=== PATIENT | female | born 1970 | race Caucasian/White ===

== ENCOUNTER 2016-11-01 18:36 | Emergency (ER) | payer OTHER ==
[2016-11-01] MEDS ORDERED: Lidocaine 1% 5ml(IM or SUTURE)(PAIN CLINIC) ONE (18:46)
[2016-11-01] MEDS ORDERED: TRIPLE ANTIBIOTIC OINTMENT PAC 1 PACKET TOP ONE (19:20)
[2016-11-01] MEDS ORDERED: DIPH,PERTUSS(ACELL),TET VAC/PF 0.5 ML DISP.SYRIN IM ONE (19:26)
[2016-11-01] MEDS ORDERED: Lidocaine 1% 5ml(IM or SUTURE)(PAIN CLINIC) IJ ONE (19:27)
[2016-11-01] MEDS ORDERED: CEPHALEXIN 250 MG CAPSULE PO ONE (19:27)
--- NOTE | 2016-11-01 19:36 | ED Physician Documentation ---
General Adult - HISTORIAN Historian: patient, spouse - HPI Stated Complaint: laceration Chief Complaint: Laceration/Recheck/Suture Additional Information: U SHAPED DISTAL LT THUMB APPROX 2.5 CM NEAR COMPLETE AMPUTATION FLAP DARK IN COLOR. LAC W/ KITCHEN KNIFE WHILE CUTTING PORK STEAK. Onset: hours (1800) Timing: still present - ROS CONST: no problems CVS/RESP: none GI/: none MS/SKIN/LYMPH: none NEURO/PSYCH: denies: headache, fainting, dizziness, tingling - PAST HX Past History: asthma Surgeries/Procedures: BTL (HERNIA), (X3) Immunizations: denies: UTD Allergies/Adverse Reactions: Allergies Allergy/AdvReac Type Severity Reaction Status Date / Time No Known Drug Allergies Allergy Verified 11/01/16 18:51 - SOCIAL HX Smoking History: non-smoker Alcohol Use: none Drug Use: none - FAMILY HX Family History: No - VITAL SIGNS Vital Signs: Vital Signs Temp Pulse Resp BP Pulse Ox 98.1 F 92 H 18 140/91 96 11/01/16 18:44 11/01/16 18:44 11/01/16 18:44 11/01/16 18:44 11/01/16 18:44 - REVIEWED ASSESSMENTS Nursing Assessment Reviewed: Yes Vitals Reviewed: Yes Procedures Wound Location: upper extremity Wound's Depth, Shape: superficial, flap Wound Explored: no foreign body removed (EXPLORED) Betadine Prep?: Yes Anesthesia: 1% Lidocaine Wound Repaired With: sutures Suture Size/Type: 4:0 Sterile Dressing Applied?: Yes Splint Applied?: No Sling Applied?: No ED Results Lab/Radiology - Orders Orders: ED Orders Category Date Time Status Cephalexin [Keflex] Med 11/01/16 19:27 Once 1,000 mg PO NOW ONE Diph,Pertuss(Acell),Tet Vac/Pf [Adacel] Med 11/01/16 19:26 Once 0.5 ml IM .ONCE ONE Lidocaine 1% 5ml(IM or SUTURE) [Xylocaine] Med 11/01/16 18:46 Discontinued 50 mg .ROUTE .STK-MED ONE Lidocaine 1% 5ml(IM or SUTURE) [Xylocaine] Med 11/01/16 19:27 Once 50 mg IJ NOW ONE General Adult Physical Exam - PHYSICAL EXAM GENERAL APPEARANCE: mild distress EENT: eye inspection normal NECK: normal inspection RESPIRATORY: no resp distress, chest non-tender, breath sounds normal CVS: reg rate & rhythm, heart sounds normal ABDOMEN: soft, non-tender SKIN: warm/dry, normal color, cyanosis (DISTAL THUMB TIP ONLY). No: diaphoresis , jaundice EXTREMITIES: normal range of motion NEURO: oriented X3, motor nml, sensation nml, mood/affect nml Discharge Clincal Impression: U SHAPED LAC DISTAL LT THUMB 2.5CM Referrals: Myranda Kang MD [Primary Care Provider] - 2 Days Comments: KEEP CLEAN DRY OBS FOR PUS SWELLING INC PAIN RED STREAKS SUT OUT [address] KANG Condition: Good Disposition: 01 HOME, SELF-CARE Decision to Admit: NO Decision Time: 19:35
[2016-11-01 19:53] VITALS: BP 138/90
== END 2016-11-01 19:40 | disposition home or self-care (01) ==
LOC: ED 18:36
DX: S61.012A Laceration without foreign body of left thumb without damage to nail, initial encounter (principal); W26.0XXA Contact with knife, initial encounter; Y93.9 Activity, unspecified; Y92.000 Kitchen of unspecified non-institutional (private) residence as the place of occurrence of the external cause; Y99.9 Unspecified external cause status
CPT/HCPCS: 12001; 90471; 90715; 99283; 99284

== ENCOUNTER 2017-09-25 09:12 | Emergency (ER) | payer OTHER ==
[~2017-09-25 09:12] MED LIST: Lidocaine 1% 5ml(IM or SUTURE)(PAIN CLINIC) IJ ONE
[2017-09-25] MEDS ORDERED: Lidocaine 1% 5ml(IM or SUTURE)(PAIN CLINIC) ONE (09:32)
--- NOTE | 2017-09-25 09:43 | ED Physician Documentation ---
General Adult - HPI Stated Complaint: FB left leg Chief Complaint: General Adult Onset: hours Timing: still present Severity: mild Further Comments: yes (Pt is a 47 yo female with a fish hook in her L leg/ ankle. Tetanus is utd.) - ROS CONST: no problems EYES/ENT: none CVS/RESP: none GI/: none MS/SKIN/LYMPH: other (fishhook in L leg) - PAST HX Past History: asthma Surgeries/Procedures: Allergies/Adverse Reactions: Allergies Allergy/AdvReac Type Severity Reaction Status Date / Time No Known Drug Allergies Allergy Verified 09/25/17 09:19 - SOCIAL HX Smoking History: non-smoker - FAMILY HX Family History: No - VITAL SIGNS Vital Signs: Vital Signs Temp Pulse Resp BP Pulse Ox 98.2 F 99 H 18 156/105 97 09/25/17 09:20 09/25/17 09:20 09/25/17 09:20 09/25/17 09:20 09/25/17 09:20 - REVIEWED ASSESSMENTS Nursing Assessment Reviewed: Yes Vitals Reviewed: Yes Progress - Progress Progress: fish hook removed from leg area cleansed with betadine, 1% lidocaine, 2 cc's, used at site Triple antibiotic applied. ED Results Lab/Radiology - Orders Orders: ED Orders Category Date Time Status Lidocaine 1% 5ml(IM or SUTURE) [Xylocaine] Med 09/25/17 09:32 Discontinued 50 mg .ROUTE .STK-MED ONE General Adult Physical Exam - PHYSICAL EXAM GENERAL APPEARANCE: no distress NECK: normal inspection, supple RESPIRATORY: no resp distress SKIN: other (fish hook in medial lower leg) EXTREMITIES: non-tender, normal range of motion, other (fish hook in medial lower leg) NEURO: oriented X3, motor nml, sensation nml Discharge Clincal Impression: foreign body L leg Referrals: Myranda Kang MD [Primary Care Provider] - Condition: Good Disposition: 01 HOME, SELF-CARE Decision to Admit: NO Decision Time: 09:55
[2017-09-25 09:59] VITALS: BP 149/87
== END 2017-09-25 09:43 | disposition home or self-care (01) ==
LOC: ED 09:12
DX: S80.852A Superficial foreign body, left lower leg, initial encounter (principal); Y93.59 Activity, other involving other sports and athletics played individually
CPT/HCPCS: 96372; 99283

== ENCOUNTER 2017-12-25 15:10 | Emergency (ER) | payer OTHER ==
[2017-12-25 15:21] VITALS: BP 144/93
--- NOTE | 2017-12-25 16:17 | ED Physician Documentation ---
Eye Problem - HISTORIAN Historian: patient - HPI Stated Complaint: L eye irritation Chief Complaint: Eye Problems Additional Information: Eye draining since yesterday. Threw away her contact lenses. Eye matted shut this am. Yellow drainage. No problems with vision, but eye mustafa. Son diagnosed with viral conjunctivitis last week and got better. Location: left eye Apparent Injury: no - ROS CONST: no problems - PAST HX Past History: none, other (c section) Immunizations: UTD Allergies/Adverse Reactions: Allergies Allergy/AdvReac Type Severity Reaction Status Date / Time No Known Drug Allergies Allergy Verified 12/25/17 15:22 Home Medications: Ambulatory Orders Medication Instructions Recorded Ciprofloxacin HCl [Ciloxan] 2 drop OP NOW #1 bottle 12/25/17 - SOCIAL HX Smoking History: non-smoker Alcohol Use: none Drug Use: none - FAMILY HX Family History: no significant history - VITAL SIGNS Vital Signs: Vital Signs Temp Pulse Resp BP Pulse Ox 98.2 F 85 18 144/93 98 12/25/17 15:19 12/25/17 15:19 12/25/17 15:19 12/25/17 15:19 12/25/17 15:19 - REVIEWED ASSESSMENTS Nursing Assessment Reviewed: Yes Vitals Reviewed: Yes Eye Problem Physical Exam - Physical Exam General Appearance: alert, mild distress Examined with Slit Lamp: No Eyelids: erythema (L) (mild, diffuse) Conjunctiva and Sclera: injected (L) (mild), exudate (L) (serous) Corneas: nml inspection EOM: intact (conjugate movements) Pupils: equal Anterior Chambers: nml inspection Head/ENT: nml inspection Skin: nml color, warm Neck/Back: nml inspection Respiratory: no resp distress Neuro/Psych: oriented x3, neuro intact, mood/affect nml Discharge Clincal Impression: Conjunctivitis Prescriptions: Ciprofloxacin HCl [Ciloxan] 2 drop OP NOW #1 bottle Referrals: Myranda Kang MD [Primary Care Provider] - 2 Days Additional Instructions: Your prescription is at [facility]. Use thorough hand washing. No contact lenses until okayed by your eye doctor. Condition: Good Disposition: 01 HOME, SELF-CARE Decision to Admit: NO Decision Time: 16:21
== END 2017-12-25 16:31 | disposition home or self-care (01) ==
LOC: ED 15:10
DX: H10.9 Unspecified conjunctivitis (principal)
CPT/HCPCS: 99282

== ENCOUNTER 2019-04-24 07:50 | Emergency (ER) | payer OTHER ==
--- NOTE | 2019-04-24 08:03 | ED Physician Documentation ---
General Adult - HISTORIAN Historian: patient - HPI Stated Complaint: nausea and vomiting since Sat Chief Complaint: Nausea,Vomiting,Diarrhea (x 3 days) Onset: days ago (3) Timing: still present Severity: moderate Further Comments: yes (She reports her daughter came this last week for holiday and she was having GI issues. Then sat she started to have vomiting with mild diarrhea and now she is having diarrhea (4 today) vomiting (currently) and lower abdominal pain that started about 2 am. She denies a fever. She is an alcoholic and she drinks vodka but has not had any alcohol since illness started. She denies any seizure activity with withdrawl. No cramping. She does note reflux and she does take OTC Meds daily for that although she has not had this since Wednesday) - ROS CONST: no problems GI/: abdominal pain, vomiting, nausea, diarrhea MS/SKIN/LYMPH: none NEURO/PSYCH: denies: headache - PAST HX Past History: other (reflux ) Immunizations: UTD Allergies/Adverse Reactions: Allergies Allergy/AdvReac Type Severity Reaction Status Date / Time No Known Drug Allergies Allergy Verified 04/24/19 08:13 Home Medications: Ambulatory Orders Medication Instructions Recorded Naltrexone [Naltrexone Base 50 mg PO DAILY 04/24/19 Monohydrate] Omeprazole (Nf) [Prilosec (Nf)] 20 mg PO DAILY 04/24/19 - SOCIAL HX Smoking History: non-smoker Alcohol Use: heavy Drug Use: none - FAMILY HX Family History: No - VITAL SIGNS Vital Signs: Vital Signs Temp Pulse Resp BP Pulse Ox 144/93 12/25/17 16:31 - REVIEWED ASSESSMENTS Nursing Assessment Reviewed: Yes Vitals Reviewed: Yes Progress - Progress Progress: 0905: pain has resolved. She is now sleeping per herself DG 0940: she has only mild nausea. She feels better. She is aware of diagnostic findings. She is to follow up with PCP and return for any increased symptoms DG General Adult Physical Exam - PHYSICAL EXAM GENERAL APPEARANCE: no distress EENT: eye inspection normal, pharynx normal, no signs of dehydration NECK: normal inspection RESPIRATORY: no resp distress, chest non-tender, breath sounds normal CVS: reg rate & rhythm, heart sounds normal, equal pulses ABDOMEN: soft, no distension, tenderness (mid lower abdomen "some" with palpation ). No: guarding BACK: normal inspection, no CVA tenderness SKIN: warm/dry, normal color EXTREMITIES: non-tender, normal range of motion, no evidence of injury, no edema NEURO: oriented X3 Discharge Clincal Impression: Nausea & vomiting Qualifiers: Vomiting type: unspecified Vomiting Intractability: unspecified Qualified Code(s): R11.2 - Nausea with vomiting, unspecified Diabetes Qualifiers: Diabetes mellitus type: type 2 Diabetes mellitus watermelon inspector insulin use: without alf use Diabetes mellitus complication status: without complication Qualified Code(s): E11.9 - Type 2 diabetes mellitus without complications Referrals: Myranda Kang MD [Primary Care Provider] - 2 Days Comments: 1. Metformin 500 mg take 1 by mouth twice daily 2. Zofran 4 mg take 1 by mouth every 8 hours as needed for nausea 3. Omeprazole 20 mg take 1 by mouth daily 4. Increase fluids 5. Watch carb/sugar intake 6. Increased vomiting or diarrhea return to ER 7. Call PCP for SIN appt - new dx of diabetes Condition: Stable Disposition: 01 HOME, SELF-CARE Decision to Admit: NO Date of Decison to Admit: 04/24/19 Decision Time: 09:44
[2019-04-24] MEDS ORDERED: ONDANSETRON HCL/PF 4 MG/ 2ML VIAL IVP ONE (08:12)
[2019-04-24] MEDS ORDERED: 0.9 % SODIUM CHLORIDE 1,000 ML IV ONE (08:12)
[2019-04-24] MEDS ORDERED: FAMOTIDINE 20 MG/2 ML VIAL IV ONE (08:14)
[2019-04-24 08:16] LABS: BASOPHILS % 0.4 % (0.0-1.5); NEUTROPHILS # 10.9 # k/uL (1.4-7.7)
[2019-04-24 08:28] LABS: eGFR (Non-African) > 60
[2019-04-24 09:55] VITALS: BP 122/84
[2019-04-24 10:59] LABS: APPEARANCE,URINE CLEAR (CLEAR); COLOR,URINE YELLOW (YELLOW); OCCULT BLOOD,URINE NEGATIVE (NEGATIVE); PH URINE 5.5 (5.0 - 8.0); UROBILINOGEN URINE 0.2 Eu (0.2-1.0)
== END 2019-04-24 09:52 | disposition home or self-care (01) ==
LOC: ED 07:50
DX: E11.9 Type 2 diabetes mellitus without complications (principal); R11.2 Nausea with vomiting, unspecified; Z79.84 Long term (current) use of oral hypoglycemic drugs
CPT/HCPCS: 80053; 80320; 81002; 82150; 83036; 83690; 85025; 96361; 96374; 96375; 99282; 99284; J2405; J7030; G0480; S1016